=== PATIENT | female | born 1990 | race African-American/Black ===

== ENCOUNTER 2022-11-09 15:14 | Emergency (ER) | payer MEDICAID ==
[~2022-11-09] VITALS: Ht 160 cm; Wt 112.3 kg
[2022-11-09 15:15] VITALS: BP 144/77; PULSE 99; RESP 18; TEMP 97.7; O2SAT 100
== END 2022-11-09 17:18 | disposition home or self-care (01) ==
LOC: ER 15:14
DX: O12.03 Gestational edema, third trimester (principal); Z3A.34 34 weeks gestation of pregnancy
CPT/HCPCS: 99281

== ENCOUNTER 2022-11-15 13:43 | Inpatient (IN) | payer MEDICAID ==
[~2022-11-15] VITALS: Ht 160 cm; Wt 111.1 kg
[2022-11-15] MEDS ORDERED: CARBOPROST TROMETHAMINE 250 MCG/ML AMPUL IM PRN (14:45)
[2022-11-15] MEDS ORDERED: METHYLERGONOVINE MALEATE 0.2 MG/ML IM PRN (14:45)
[2022-11-15] MEDS ORDERED: OXYTOCIN 30 UNITS/500ML NS PMX 500 ML IV SCH (14:45)
[2022-11-15] MEDS ORDERED: PENICILLIN G POTASSIUM 5 MMU in DEXT 5% WATER 100 ML IV SCH (15:30)
[2022-11-15 16:48] LABS: BASOPHILS % 0.1 % (0.0-2.0); EOSINOPHILS % 0.6 % (0.0-5.0); HEMATOCRIT. 31.5 % (36.0-48.0); LYMPHOCYTES % 14.8 % (20.0-50.0); MEAN CORPUSCULAR HEMOGLOBIN 27.3 pg (28.0-32.0); MEAN CORPUSCULAR HGB CONC 31.8 g/dL (31.0-37.0); MEAN CORPUSCULAR VOLUME 85.6 fL (81.0-99.0); MONOCYTES % 7.5 % (2.0-8.0); PLATELET 229 x1000/uL (130-400); RED BLOOD CELL COUNT 3.68 mill/uL (4.2-5.4); WHITE BLOOD COUNT 11.2 x1000/uL (4.5-11.0)
[2022-11-15 16:56] LABS: *AMPHETAMINES SCREEN URINE NEGATIVE (NEGATIVE); *BARBITURATES SCREEN URINE NEGATIVE (NEGATIVE); *BENZODIAZEPINES SCREEN URINE NEGATIVE (NEGATIVE); *COCAINE SCREEN URINE NEGATIVE (NEGATIVE); CANNABINOID URINE SCREEN NEGATIVE (NEGATIVE); ECSTASY MDMA SCREEN URINE NEGATIVE (NEGATIVE); METHADONE URINE SCREEN NEGATIVE (NEGATIVE); OPIATES URINE SCREEN NEGATIVE (NEGATIVE); PHENCYCLIDINE URINE SCREEN NEGATIVE (NEGATIVE)
[2022-11-15 16:57] LABS: CHLORIDE 109 mEq/L (98-107); INDEX HEMOLYSI 1 (1-3); INDEX ICTERIC 1 (1-4); INDEX LIPEMIC 1 (1-3); POTASSIUM 3.8 mEq/L (3.5-5.1); SODIUM 136 mEq/L (136-145)
[2022-11-15 17:00] LABS: CLARITY URINE CLEAR (CLEAR); COLOR URINE YELLOW (YELLOW); GLUCOSE URINE NEGATIVE (NEGATIVE); KETONES URINE 3+ (NEGATIVE); LEUKOCYTE ESTERASE URINE NEGATIVE (NEGATIVE); NITRITE URINE NEGATIVE (NEGATIVE); OCCULT BLOOD URINE 2+ (NEGATIVE); PH URINE 5.5 (4.5-8.0); PROTEIN URINE 1+ (NEGATIVE); SPECIFIC GRAVITY URINE 1.024 (1.005-1.030); UROBILINOGEN URINE 0.2 E.U./dL (0.2-1.0)
[2022-11-15] MEDS ORDERED: PENICILLIN G POTASSIUM 5 MMU in DEXT 5% WATER 100 ML IV NR (17:00)
[2022-11-15 17:01] LABS: INR 0.9; PARTIAL THROMBOPLASTIN TIME 24.8 sec (23.4-31.0); PROTHROMBIN TIME 9.9 sec (9.6-11.0)
[2022-11-15 17:02] LABS: BACTERIA URINE NONE SEEN; SQUAMOUS EPITHELIAL CELL URINE 1+ /lpf (RARE/1+); YEAST URINE NONE SEEN
[2022-11-15 17:04] LABS: ALANINE AMINOTRANSFERASE 15 IU/L (13-61); ALBUMIN 2.3 g/dL (3.4-5.0); ASPARTATE AMINOTRANSFERASE 16 IU/L (15-37); BILIRUBIN TOTAL 0.4 mg/dL (0.1-1.0); CARBON DIOXIDE 20 mEq/L (21-32); CREATININE 0.7 mg/dL (0.6-1.3); GLUCOSE 81 mg/dL (70-105); PROTEIN TOTAL 6.8 g/dL (6.0-8.3); UREA NITROGEN BLOOD 8 mg/dL (7-21)
[2022-11-15] MEDS: LACTATED RINGERS 1,000 ML IV SCH (17:13)
[2022-11-15 17:20] LABS: WBC URINE 0-2 /hpf (0-2)
[2022-11-15 17:25] LABS: RAPID HIV SCREEN NEGATIVE (NEGATIVE)
[2022-11-15 18:38] LABS: RUBELLA IGG 13.7 IU/mL (4.99-10)
[2022-11-15 18:39] LABS: HEPATITIS B SURFACE ANTIGEN NEGATIVE
[2022-11-15] MEDS ORDERED: PENICILLIN G POTASSIUM 2.5 MMU in DEXTROSE 5% WATER 50 ML IV SCH ×2 (19:30→21:00)
[2022-11-15] MEDS ORDERED: FENTANYL CITRATE/PF 50MCG/ML 2ML VIAL ONE (21:45)
[2022-11-15] MEDS ORDERED: CITRIC ACID/SODIUM CITRATE SOLN 30ML UDC PO NR (21:45)
[2022-11-15] MEDS ORDERED: ONDANSETRON HCL 4MG/2ML INJ ONE (21:45)
[2022-11-15] MEDS ORDERED: CEFAZOLIN SODIUM 1000MG/VIAL ONE (21:45)
[2022-11-15] MEDS ORDERED: MORPHINE SULFATE/PF 1MG/ML 10ML AMP ONE (21:45)
[2022-11-15] MEDS ORDERED: OXYTOCIN 10 UNITS/ML 1ML ONE (21:45)
[2022-11-15] MEDS ORDERED: DIPHENHYDRAMINE 50MG/ML VIAL ONE (21:45)
[2022-11-15] MEDS ORDERED: METOCLOPRAMIDE HCL 10MG/2ML VIAL ONE (21:50)
[2022-11-15] MEDS ORDERED: KETOROLAC 60MG/2ML VIAL IM ONE (23:13)
[2022-11-15] MEDS ORDERED: NALOXONE HCL 0.4 MG/ML 1ML VIAL IV PRN (23:30)
[2022-11-15] MEDS ORDERED: DIPHENHYDRAMINE 50MG/ML VIAL IV PRN (23:30)
[2022-11-16] VITALS (7 sets, daily range): BP systolic 99–134; BP diastolic 46–71; PULSE 78–83; RESP 18; TEMP 97.5–98.4; O2SAT 98–100
[2022-11-16] MEDS ORDERED: OXYTOCIN 30 UNITS/500ML NS PMX 500 ML IV SCH (00:30)
[2022-11-16] MEDS ORDERED: RHO(D) IMMUNE GLOBULIN 300 MCG/SYR IM PRN (00:30)
[2022-11-16] MEDS ORDERED: LANOLIN OINT 7GM TUBE TOP PRN (00:30)
[2022-11-16] MEDS ORDERED: DIPHENHYDRAMINE 25MG CAPSULE PO PRN (00:30)
[2022-11-16] MEDS ORDERED: ONDANSETRON HCL 4MG/2ML INJ IV PRN (00:30)
[2022-11-16] MEDS ORDERED: BISACODYL 10MG SUPP PR PRN (00:30)
[2022-11-16] MEDS ORDERED: HYDROCODONE/ACETAMINOPHEN 5/325MG TABLET PO PRN ×2 (00:30)
[2022-11-16] MEDS: KETOROLAC 30MG/ML VIAL IV SCH ×3 (03:12→16:28)
[2022-11-16] MEDS: LACTATED RINGERS 1,000 ML IV SCH ×2 (05:50→23:07)
[2022-11-16] MEDS ORDERED: CEFAZOLIN SODIUM 1000MG/VIAL IV SCH (06:00)
[2022-11-16] MEDS ORDERED: CEFAZOLIN 1000MG PREMIX 50 ML IV SCH (06:00)
[2022-11-16] MEDS: PRENATAL VIT/FE FUMARATE/FA TABLET PO SCH (10:16)
[2022-11-16] MEDS ORDERED: KETOROLAC 30MG/ML VIAL IV SCH (15:45)
[2022-11-16] MEDS ORDERED: CEFAZOLIN 1000MG PREMIX 50 ML IV NR (16:00)
[2022-11-16] MEDS: DOCUSATE SODIUM 100MG CAPSULE PO SCH (21:25)
[2022-11-17 00:01] VITALS: BP 120/57; PULSE 81; RESP 18; TEMP 98.1
[2022-11-17 04:00] VITALS: BP 120/66; PULSE 84; RESP 18; TEMP 98.4
[2022-11-17 07:30] VITALS: BP 113/55; PULSE 88; RESP 18; TEMP 98.3; O2SAT 97
[2022-11-17] MEDS: PRENATAL VIT/FE FUMARATE/FA TABLET PO SCH (08:10)
[2022-11-17 09:49] LABS: BASOPHILS % 0.3 % (0.0-2.0); EOSINOPHILS % 1.1 % (0.0-5.0); HEMATOCRIT. 30.2 % (36.0-48.0); HEMOGLOBIN. 9.8 g/dL (12.0-16.0); LYMPHOCYTES % 16.6 % (20.0-50.0); MEAN CORPUSCULAR HEMOGLOBIN 27.9 pg (28.0-32.0); MEAN CORPUSCULAR HGB CONC 32.5 g/dL (31.0-37.0); MEAN CORPUSCULAR VOLUME 85.9 fL (81.0-99.0); MEAN PLATELET VOLUME 9.3 fl (7.4-10.4); MONOCYTES % 6.7 % (2.0-8.0); NEUTROPHILS % 75.3 % (40.0-76.0); PLATELET 237 x1000/uL (130-400); RED BLOOD CELL COUNT 3.51 mill/uL (4.2-5.4); RED CELL DISTRIBUTION WIDTH 14.3 % (11.6-14.6); WHITE BLOOD COUNT 10.5 x1000/uL (4.5-11.0)
[2022-11-17 15:40] VITALS: BP 124/68; PULSE 85; RESP 18; TEMP 97.6
[2022-11-17 19:30] VITALS: BP 139/64; PULSE 90; RESP 20; TEMP 98.5; O2SAT 100
[2022-11-17] MEDS: DOCUSATE SODIUM 100MG CAPSULE PO SCH (20:45)
[2022-11-17] MEDS: IBUPROFEN 400MG TABLET PO PRN (20:45)
[2022-11-18 04:00] VITALS: BP 122/70; PULSE 80; RESP 20; TEMP 97.8
[2022-11-18] MEDS: IBUPROFEN 400MG TABLET PO PRN (04:03)
[2022-11-18 08:00] VITALS: BP 128/83; PULSE 69; RESP 18; TEMP 98; O2SAT 98
== END 2022-11-18 13:20 | disposition home or self-care (01) | DRG 540 ==
LOC: OBSVTOIN 13:43 → 8 EST LDRP 13:43 → 8EST 11-16 02:45
PROVIDERS: ADMIT Obstetrics & Gynecology; ATTEND Obstetrics & Gynecology
PROC: 10D00Z1 Extraction of Products of Conception, Low, Open Approach (ICD-10-PCS; principal; 2022-11-16)
DX: O42.913 Preterm premature rupture of membranes, unspecified as to length of time between rupture and onset of labor, third trimester (principal); O60.14X0 Preterm labor third trimester with preterm delivery third trimester, not applicable or unspecified; O24.420 Gestational diabetes mellitus in childbirth, diet controlled; O34.211 Maternal care for low transverse scar from previous cesarean delivery; Z37.0 Single live birth; Z3A.36 36 weeks gestation of pregnancy; O99.03 Anemia complicating the puerperium
CPT/HCPCS: 36415; 76805; 76818; 80053; 80305; 81003; 85025; 86592; 86703; 86762; 86850; 86900; 87340; 88307; 99281; G0378; J0690; J1200; J1885; J2274; J2405; J2540; J2765; J3010; J7060; J7120; A4315; J2590

== ENCOUNTER 2024-05-20 16:30 | Emergency (ER) | payer MEDICAID ==
[~2024-05-20] VITALS: Ht 157.5 cm; Wt 99.8 kg
[2024-05-20 16:40] VITALS: BP 129/74; PULSE 82; RESP 16; TEMP 98.3; O2SAT 100
[2024-05-20] MEDS ORDERED: CEPH500T MT (20:48)
== END 2024-05-20 20:00 | disposition home or self-care (01) ==
LOC: ER 16:30
DX: L50.9 Urticaria, unspecified (principal); N39.0 Urinary tract infection, site not specified; Z98.890 Other specified postprocedural states
CPT/HCPCS: 99283

== ENCOUNTER 2024-06-20 14:37 | Emergency (ER) | payer MEDICAID ==
[~2024-06-20] VITALS: Ht 157.5 cm; Wt 99.8 kg
[~2024-06-20 14:37] MED LIST: CEPH500T MT
[2024-06-20 14:47] VITALS: TEMP 37.1; O2SAT 100
[2024-06-20 14:50] VITALS: O2SAT 100
[2024-06-20 15:25] LABS: CLARITY URINE CLEAR (CLEAR); COLOR URINE YELLOW (YELLOW); GLUCOSE URINE NEGATIVE (NEGATIVE); KETONES URINE NEGATIVE (NEGATIVE); LEUKOCYTE ESTERASE URINE NEGATIVE (NEGATIVE); NITRITE URINE NEGATIVE (NEGATIVE); OCCULT BLOOD URINE TRACE (NEGATIVE); PROTEIN URINE NEGATIVE (NEGATIVE); SPECIFIC GRAVITY URINE 1.015 (1.005-1.030); UROBILINOGEN URINE 0.2 E.U./dL (0.2-1.0)
[2024-06-20 15:32] LABS: BACTERIA URINE FEW; SQUAMOUS EPITHELIAL CELL URINE 1+ /lpf (RARE/1+); YEAST URINE NONE SEEN
[2024-06-20] MEDS ORDERED: IBUP-2028 PO (18:21)
[2024-06-20 18:24] VITALS: BP 128/72; PULSE 85; RESP 16
[2024-06-20] MEDS: IBUPROFEN 600MG TABLET PO ONE (18:24)
== END 2024-06-20 18:28 | disposition home or self-care (01) ==
LOC: ER 14:37
DX: M54.9 Dorsalgia, unspecified (principal); Z79.1 Long term (current) use of non-steroidal anti-inflammatories (NSAID); Z98.890 Other specified postprocedural states
CPT/HCPCS: 81003; 99283

== ENCOUNTER 2024-08-09 14:40 | Emergency (ER) | payer SELFPAY ==
[~2024-08-09] VITALS: Ht 167.6 cm; Wt 98.0 kg
[~2024-08-09 14:40] MED LIST changes: +IBUP-2028 PO
[2024-08-09 15:43] LABS: CLARITY URINE CLEAR (CLEAR); COLOR URINE YELLOW (YELLOW); GLUCOSE URINE NEGATIVE (NEGATIVE); KETONES URINE NEGATIVE (NEGATIVE); LEUKOCYTE ESTERASE URINE NEGATIVE (NEGATIVE); NITRITE URINE NEGATIVE (NEGATIVE); OCCULT BLOOD URINE NEGATIVE (NEGATIVE); PH URINE 5.5 (4.5-8.0); PROTEIN URINE NEGATIVE (NEGATIVE); SPECIFIC GRAVITY URINE 1.024 (1.005-1.030); UROBILINOGEN URINE 0.2 E.U./dL (0.2-1.0)
[2024-08-09] MEDS ORDERED: DOXY100C5 MT (18:14)
[2024-08-09 19:04] VITALS: BP 138/90; PULSE 86; RESP 14; TEMP 36.7; O2SAT 99
[2024-08-09] MEDS: CEFTRIAXONE SODIUM 1G VIAL IM ONE (19:04)
== END 2024-08-09 19:05 | disposition home or self-care (01) ==
LOC: ER 14:40
DX: Z11.3 Encounter for screening for infections with a predominantly sexual mode of transmission (principal); N89.8 Other specified noninflammatory disorders of vagina; Z79.1 Long term (current) use of non-steroidal anti-inflammatories (NSAID); Z98.890 Other specified postprocedural states
CPT/HCPCS: 87491; 87591; 81003; 81025; 96372; 99283; J0696; Z7610